=== PATIENT | male | born 1960 | race Caucasian/White ===

== ENCOUNTER 2019-07-20 15:28 | Emergency (ER) | payer SELFPAY ==
[~2019-07-20] VITALS: Ht 182.9 cm; Wt 104.3 kg
[2019-07-20 15:44] VITALS: BP 127/83
--- NOTE | 2019-07-20 15:45 | NUR ---
ED Nurse Note:pt. twisted his right 4th finger 1 week ago when walking dog on the [place], it's still deformed and swallen
--- NOTE | 2019-07-20 15:46 | Emergency Room Report ---
History of Present Illness General Chief Complaint: Upper Extremity Injury Source: Patient Present Illness HPI Disclaimer: Please note that this report is being documented using DRAGON technology. This can lead to erroneous entry secondary to incorrect interpretation by the dictating instrument. HPI: 59-year-old male presents for evaluation of right hand injury. Patient fell several weeks ago while walking her dog forward onto her outstretched right hand. He injured the right middle finger and believing it was fractured placed a finger splint that he bought from a drugstore. He held it for several days however he noted persistent deformity. Notes swelling around the PIPJ with hyperextension of the DIPJ. Able to flex at the MCP J and PIPJ but cannot move the distal part of the right ring finger. Denies numbness or tingling. Pain is improved. No other injury reported. Denies pain in the wrist or elbow. PMH: Reviewed PSH: Reviewed Allergies: Reviewed Social Hx: Reviewed Allergies: Coded Allergies: Cat Dander (Verified Allergy, Unknown, 07/20/19) COVID-19 Screening Contact w/high risk pt: No Recent Travel to affected area: No Experienced COVID-19 symptoms?: No Nursing Documentation-PMH Past Medical History: No Stated History Review of Systems All Other Systems: negative except mentioned in HPI Physical Exam Vital Signs Date Time Temp Pulse Resp B/P (MAP) Pulse Ox O2 Delivery O2 Flow Rate FiO2 07/20/19 15:33 98.4 87 20 127/83 (98) 97 Room Air General: Awake and alert, no acute distress HEENT: NC/AT. EOMI. Resp: Normal work of breathing Skin: Intact. No abrasions, laceration or rash over the exposed skin MSK: Normal tone and bulk. Moving all extremities. A hard nontender deformity over the dorsal aspect of the PIPJ right ring finger. Held in flexion with the PIPJ held in extension. Able to flex at the MCP J and PIPJ. Difficulty with extension at the PIPJ. Cannot flex DIPJ. Full range of motion in the wrist and elbow. Neuro: Awake and alert. Mentating appropriately. Sensation intact over the radial and ulnar aspects of digits on the right hand. Medical Decision Making Diagnostic Impression: Primary Impression: Fracture of proximal phalanx of ring finger Additional Impression: Boutonniere deformity of finger ER Course 59-year-old [id number] male presents for evaluation of right ring finger deformity. Patient's physical exam consistent with a boutonniere's deformity concerning for ligamentous injury though fracture dislocation also remain on differential. X-ray shows a fracture of the distal portion of the proximal phalanx. Consistent with the patient's current presentation. Patient was placed in a splint stabilizing and extending the PIPJ however the patient stated that he could not go to work with this splint and removed it. I referred him to orthopedic surgery to discuss further treatment of his boutonniere deformity and finger fracture. I also advised that there are other splints on the market that are little more low-profile and would not impede his hand as much. Referred him to orthopedic surgery for further management. Other X-Ray Diagnostic Results Other X-Ray Diagnostic Results : X-Ray ordered: Right hand # of Views/Limited Vs Complete: Complete Indication: Pain Interpretation: other - Fracture of the distal aspect of the proximal phalanx of the right ring finger Impression: Other - Acute fracture right ring finger Electronically Signed by: Electronically signed by Dr. Earnest Rubio Last Vital Signs Date Time Temp Pulse Resp B/P (MAP) Pulse Ox O2 Delivery O2 Flow Rate FiO2 07/20/19 15:33 98.4 87 20 127/83 (98) 97 Room Air Disposition: HOME, SELF-CARE Condition: Stable Scripts No Active Prescriptions or Reported Meds Earnest Rubio MD July 20, 2019 15:46
[2019-07-20 16:30] VITALS: BP 127/83
--- NOTE | 2019-07-20 16:30 | NUR ---
ER DISCHARGE NOTE: Patient is cleared to be discharged per ERMD, pt is aox4, on room air, with stable vital signs. pt was given dc and prescription instructions, pt was able to verbalize understanding, pt is able to ambulate with steady gait. pt took all belongings.
--- NOTE | 2019-07-20 17:28 | Diagnostic Imaging Report ---
Indication: Pain, trauma Technique: 3 views right hand Comparison: none Findings: No acute fractures. No dislocations. The joint spaces are preserved. Impression: No acute process
== END 2019-07-20 16:30 | disposition home or self-care (01) ==
LOC: EMR 15:50
DX: S62.614A Displaced fracture of proximal phalanx of right ring finger, initial encounter for closed fracture (principal); M20.021 Boutonniere deformity of right finger(s); W19.XXXA Unspecified fall, initial encounter; Y93.K1 Activity, walking an animal; Y92.9 Unspecified place or not applicable
CPT/HCPCS: 99283